=== PATIENT | female | born 1990 | race African-American/Black ===

== ENCOUNTER 2017-02-23 16:50 | Emergency (ER) | payer MEDICAID, OTHER ==
[~2017-02-23] VITALS: Ht 157.5 cm; Wt 61.4 kg
[2017-02-23] MEDS ORDERED: ACETAMINOPHEN/CODEINE 300-30 MG TABLET PO ONE ×2 (17:30→19:00)
[2017-02-23 19:30] VITALS: BP 116/72
== END 2017-02-23 19:33 | disposition home or self-care (01) ==
LOC: EMS 16:51
DX: J40 Bronchitis, not specified as acute or chronic (principal)
CPT/HCPCS: 71020; 93005; 99284

== ENCOUNTER 2019-07-27 16:55 | Emergency (ER) | payer OTHER ==
[~2019-07-27] VITALS: Ht 162.6 cm; Wt 63.6 kg
[2019-07-27] MEDS ORDERED: NITROFURANTOIN/NITROFURAN MAC 100 MG CAPSULE [MACROBID] PO ONE (18:30)
[2019-07-27] MEDS ORDERED: PHENAZOPYRIDINE HCL 100 MG TABLET PO ONE (18:30)
[2019-07-27 18:55] LABS: APPEARANCE,URINE CLEAR (CLEAR); BILIRUBIN,URINE NEGATIVE (NEGATIVE); GLUCOSE, URINE (UA) NEGATIVE (NEGATIVE); KETONES,URINE NEGATIVE (NEGATIVE); LEUKOCYTE ESTERASE ,URINE SMALL (NEGATIVE); NITRATE,URINE NEGATIVE (NEGATIVE); OCCULT BLOOD,URINE NEGATIVE (NEGATIVE); PH,URINE 7.5 (5.0-8.0); PROTEIN,URINE NEGATIVE (NEGATIVE); UROBILINOGEN,URINE 0.2 mg/dL (<=1.0)
[2019-07-27 19:07] LABS: BACTERIA,URINE None Seen /HPF (None Seen); RBC,URINE None Seen /HPF (0-2); SQUAMOUS EPITHELIAL CELL,UR Few /LPF (None Seen); WBC,URINE 0-2 /HPF (0-5)
[2019-07-27 19:49] VITALS: BP 110/70
== END 2019-07-27 19:50 | disposition home or self-care (01) ==
LOC: EMS 16:58
DX: R10.30 Lower abdominal pain, unspecified (principal); M54.5 Low back pain; R30.0 Dysuria

== ENCOUNTER 2023-04-27 21:34 | Emergency (ER) | payer OTHER ==
[~2023-04-27] VITALS: Ht 157.5 cm; Wt 60.0 kg
[2023-04-27 21:40] VITALS: TEMP 98.6
[2023-04-27 22:15] LABS: HCG,QUAL URINE NEGATIVE (NEGATIVE)
[2023-04-27 22:17] LABS: APPEARANCE,URINE CLEAR (CLEAR); BILIRUBIN,URINE NEGATIVE (NEGATIVE); COLOR,URINE COLORLESS (YELLOW); GLUCOSE, URINE (UA) NEGATIVE (NEGATIVE); KETONES,URINE NEGATIVE (NEGATIVE); LEUKOCYTE ESTERASE ,URINE NEGATIVE (NEGATIVE); NITRATE,URINE NEGATIVE (NEGATIVE); OCCULT BLOOD,URINE NEGATIVE (NEGATIVE); PH,URINE 5.5 (5.0-8.0); PROTEIN,URINE NEGATIVE (NEGATIVE); SPECIFIC GRAVITIY, URINE 1.005 (1.003-1.030); UROBILINOGEN,URINE <=1.0 mg/dL (<=1.0)
[2023-04-27 22:41] LABS: BASOPHILS % (AUTO) 1.3 % (0.0-2.0); EOSINOPHILS % (AUTO) 9.4 % (1.0-6.0); HEMATOCRIT 37.8 % (36-46); HEMOGLOBIN 12.7 g/dL (12.0-16.0); LYMPHOCYTES # (AUTO) 2.3 K/uL (1.0-4.8); LYMPHOCYTES % (AUTO) 41.5 % (22.0-44.0); MEAN CORPUSCULAR HEMOGLOBIN 30.5 pg (26.0-34.0); MEAN CORPUSCULAR HGB CONC 33.6 G/dL (31.0-37.0); MEAN CORPUSCULAR VOLUME 91 fL (80-100); MONOCYTES # (AUTO) 0.5 K/uL (0.1-1.0); MONOCYTES % (AUTO) 8.8 % (2.0-9.0); NEUTROPHILS # (AUTO) 2.1 K/uL (1.8-7.7); PLATELET COUNT (AUTO) 227 K/uL (150-450); RED BLOOD CELL COUNT(AUTO) 4.18 MIL/uL (4.00-5.20); RED CELL DISTRIBUTION WIDTH 13.4 % (11.5-14.5); WHITE BLOOD COUNT (AUTO) 5.5 K/uL (4.5-11.0)
[2023-04-27 22:50] LABS: ANION GAP 5 mmol/L (8-16); CALCIUM, TOTAL 9.4 mg/dL (8.8-10.5); CARBON DIOXIDE 27 mmol/L (22-29); CHLORIDE 103 mmol/L (98-107); GLOMERULAR FILTR. RATE CALC > 60 mL/min (>60); GLUCOSE,RANDOM 98 mg/dL (70-110); POTASSIUM 3.6 mmol/L (3.5-5.1); SODIUM SERUM 135 mmol/L (136-145); UREA NITROGEN, BLOOD 9 mg/dL (7-18)
[2023-04-27 22:56] LABS: ALANINE AMINOTRANSFERASE 15 U/L (12-78); ALBUMIN 3.5 g/dL (3.4-5.0); ALKALINE PHOSPHATASE 72 U/L (46-116); ASPARTATE AMINOTRANSFERASE 19 U/L (15-37); BILIRUBIN,TOTAL 0.4 mg/dL (0.1-1.0); TOTAL PROTEIN, SERUM 8.4 g/dL (6.4-8.2)
[2023-04-27] MEDS ORDERED: KETOROLAC TROMETHAMINE 60 MG/2 ML VIAL IM ONE (23:00)
[2023-04-27 23:09] VITALS: BP 102/60; PULSE 60; RESP 16
== END 2023-04-28 | disposition home or self-care (01) ==
LOC: EMS 21:36
DX: R10.32 Left lower quadrant pain (principal)
CPT/HCPCS: 99283; 80053; 81003; 84703; 85025; 36415; 96372; J1885